=== PATIENT | male | born 1965 | race African-American/Black ===

== ENCOUNTER 2018-07-13 08:34 | Observation (INO) | payer BC, SELFPAY ==
[2018-07-13 09:12] LABS: #Basophils 0.1 thou/uL (0.0-0.2); #Eosinphils 0.1 thou/uL (0.0-0.7); #Lymphocytes 0.8 thou/uL (1.20-3.40); #Monocytes 0.5 thou/uL (0.11-0.59); %Basophils 1.2 % (0.0-1.0); %Eosinophils 2.1 % (0.0-10.0); %Lymphocytes 14.1 % (21.0-51.0); %Monocytes 8.5 % (0.0-10.0); %Neutrophils 74.1 % (42.0-75.0); Hemoglobin 13.8 g/dL (14.0-18.0); Mean Corpuscular HGB CONC 33.2 g/dL (32.0-36.0); Mean Corpuscular Hemoglobin 30.6 pg (27.0-31.0); Mean Corpuscular Volume 92.2 fL (78.0-98.0); Mean Platelet Volume 9.3 fL (7.4-10.4); Platelet Count 203 thou/uL (130-400); RBC Distribution Width 12.7 % (11.5-14.5); Red Blood Cell (RBC) Count 4.53 mill/uL (4.70-6.10); White Blood Cell (WBC) Count 5.4 thou/uL (4.8-10.8)
[2018-07-13 09:34] LABS: ALT (SGPT) 16 U/L (8-55); AST (SGOT) 12 U/L (5-34); Albumin 4.2 g/dL (3.5-5.0); Alkaline Phosphatase 54 U/L (40-150); Anion Gap 12 mmol/L (10-20); BUN (Urea Nitrogen) 21 mg/dL (8.4-25.7); Bilirubin, Total 0.3 mg/dL (0.2-1.2); Calc. Creatinine Clearance 0 mL/min (70-130); Calcium 9.8 mg/dL (7.8-10.44); Carbon Dioxide 25 mmol/L (22-29); Chloride 106 mmol/L (98-107); Estimated GFR-MDRD Greater than 90; Globulin 2.8 g/dL (2.4-3.5); Glucose 185 mg/dL (70-105); Potassium 3.8 mmol/L (3.5-5.1); Sodium 139 mmol/L (136-145)
[2018-07-13 09:39] LABS: CKMB 0.8 ng/mL (0-6.6); Troponin I Less than 0.010 ng/mL (< 0.028)
[2018-07-13] MEDS ORDERED: Nitroglycerin 0.4 MG TAB (25 Tab Bottle) ONE (09:55)
--- NOTE | 2018-07-13 09:56 | RAD ---
PORTABLE CHEST: Comparison: 04-21-12 History: Chest pain FINDINGS: Heart size is within normal limits. Mediastinal structures appear unremarkable. The lungs are clear o f infiltrates. IMPRESSION: No active intrathoracic disease. POS: [facility]
[2018-07-13] MEDS ORDERED: Acetaminophen 500 MG TAB ONE (11:05)
[2018-07-13 12:37] VITALS: BMI 29.5
[2018-07-13 12:47] LABS: Troponin I Less than 0.010 ng/mL (< 0.028)
[2018-07-13 16:07] LABS: Troponin I Less than 0.010 ng/mL (< 0.028)
[2018-07-13] MEDS: metFORMIN 500 MG TAB PO SCH (16:31)
[2018-07-13] MEDS: Lisinopril 10 MG TAB PO SCH (20:46)
[2018-07-14 04:55] LABS: Cardiac Risk 4.5 (Less than 4.5)
[2018-07-14] MEDS ORDERED: Amlodipine 10 MG TAB PO SCH (09:00)
[2018-07-14] MEDS ORDERED: Aspirin 81 mg Enteric Coated Tablet PO SCH (09:00)
[2018-07-14] MEDS ORDERED: Pioglitazone HCl 15 MG TAB PO SCH (09:00)
[2018-07-14] MEDS ORDERED: glipiZIDE 10 MG TAB PO SCH (09:00)
[2018-07-14] MEDS: metFORMIN 500 MG TAB PO SCH (10:19)
[2018-07-14] MEDS: Lisinopril 10 MG TAB PO SCH (12:11)
--- NOTE | 2018-07-14 13:16 | NM ---
MYOCARDIAL PERFUSION SCAN: INDICATIONS: Chest pain. TECHNIQUE: The patient was given 10 millicuries of technetium labeled sestamibi for rest imaging and 33 millicur ies for stress imaging. The patient was traced according to an adenosine protocol. The left ventricle is imaged with SPECT imaging. CT attenuation imaging is obtained. FINDINGS: There is normal activity throughout the left ventricle on stress images. Inferior wall activity is d egraded on the rest images, due to activity under the diaphragm. Wall motion appears normally preserved. The ejection fraction is recorded at 51%. IMPRESSION: No evidence of reversible ischemia. POS: [facility]
[2018-07-14 16:07] VITALS: BP 161/79; TEMP 98.4
== END 2018-07-14 16:30 | disposition home or self-care (01) ==
LOC: ERS 08:34 → 2SW 11:14
PROVIDERS: ADMIT Internal Medicine; ATTEND Internal Medicine
DX: R07.2 Precordial pain (principal); I25.2 Old myocardial infarction; I10 Essential (primary) hypertension; E11.9 Type 2 diabetes mellitus without complications; K21.9 Gastro-esophageal reflux disease without esophagitis; F17.210 Nicotine dependence, cigarettes, uncomplicated; Z79.82 Long term (current) use of aspirin; Z79.84 Long term (current) use of oral hypoglycemic drugs; Z79.899 Other long term (current) drug therapy
CPT/HCPCS: 36415; 71045; 78452; 80053; 80061; 82553; 84484; 85025; 93005; 93017; 96360; 99406; A9500; G0378; J0153

== ENCOUNTER 2018-11-18 07:48 | Outpatient (CLI) | payer BC ==
--- NOTE | 2018-11-18 11:08 | PET ---
PET SCAN: HISTORY: 53-year-old male with enlarged lymph nodes in the left retroperitoneum. TECHNIQUE: PET scanning with CT attenuation correction is performed from the base of the brain through the proxi mal thighs following the intravenous administration of 11.4 mCi F18-FDG in the right antecubital eusebio a. Imaging performed after an uptake interval of 47 minutes. COMPARISON: None. CORRELATION: CT scan of the abdomen and pelvis of 10/25/18 and 11/02/18 from [facility]. FINDINGS: There are multiple hypermetabolic lymph nodes in the mediastinum with a maximum SUV Of 7.3 in the rig ht paratracheal region, right hilum with a SUV of 5.6, and left hilum with a SUV of 5.6. No brian hyp ermetabolism seen in the left axilla, abdomen, or pelvis. The left retroperitoneal/paraaortic lymphad enopathy noted on the CT scan and demonstrates no abnormal FDG localization (SUV 1.4). No hypermetabolic pulmonary nodules, liver, adrenal, or skeletal lesions are seen. There is physiologic activity in the GI and tracts, and the visualized portions of the brain. The CT scan used for attenuation correction demonstrates no evidence of pleural effusions or ascites. IMPRESSION: Hypermetabolic lymph nodes in the mediastinum and both hilar regions. Malignancy (such as lymphoma) v ersus metastatic disease. POS: [facility]
== END 2018-11-18 07:49 | disposition home or self-care (01) ==
LOC: PET 07:48
PROVIDERS: ATTEND Internal Medicine Hematology & Oncology
DX: R59.9 Enlarged lymph nodes, unspecified (principal)
CPT/HCPCS: 78815; A9552

== ENCOUNTER 2018-11-26 07:20 | Day surgery (SDC) | payer BC ==
[2018-11-23 11:44] VITALS: BMI 30.2
[2018-11-26] MEDS ORDERED: Fentanyl 100 MCG/2 ML VIAL ONE (08:53)
[2018-11-26] MEDS ORDERED: Morphine 4 MG/ML VIAL ONE (11:08)
[2018-11-26] MEDS ORDERED: Morphine 2 MG/ML SYRINGE ONE ×2 (11:18→11:38)
[2018-11-26] MEDS ORDERED: Ondansetron PF 4 MG/2 ML Vial ONE (15:58)
[2018-11-26] MEDS ORDERED: Rocuronium Bromide 10 MG/ML (10ML VIAL) ONE (15:58)
[2018-11-26] MEDS ORDERED: PROPOFOL 200 MG/20 ML VIAL ONE (15:58)
[2018-11-26] MEDS ORDERED: Dexamethasone 20 MG/5 ML VIAL ONE (15:58)
[2018-11-26] MEDS ORDERED: Glycopyrrolate 0.2 MG/ML 5 ML SYRINGE ONE (15:58)
[2018-11-26] MEDS ORDERED: Lidocaine 1% PF 5 ML VIAL ONE (15:58)
[2018-11-26] MEDS ORDERED: PHENYLEPHRINE-NS 100 MCG/ML 10 ML SYRINGE ONE (15:58)
[2018-11-26] MEDS ORDERED: Esmolol 100 MG/10 ML VIAL ONE (15:58)
--- NOTE | 2018-11-26 16:00 | OP ---
DATE OF PROCEDURE: 11/26/2018 SERVICE: Pulmonary Medicine. PROCEDURE PERFORMED: Fiberoptic bronchoscopy with: 1. Transbronchial biopsies. 2. Airway inspection. 3. Endoscopic bronchial ultrasound-guided transbronchial needle aspiration of station R3 and 7. PREPROCEDURE DIAGNOSIS: Mediastinal lymphadenopathy. POSTPROCEDURE DIAGNOSIS: Mediastinal lymphadenopathy. MEDICATIONS: For list of medications administered, please refer to Anesthesia documentation. PREANESTHESIA ASSESSMENT: H and P had been performed. The patient's medications and allergies were reviewed. Informed consent was obtained after discussing the rationale, benefits, and risks of the procedure. Alternative options for sample collection were discussed. DESCRIPTION OF PROCEDURE: A time-out was performed. The patient was positively identified with name and date of . The proposed procedure was verified. After induction anesthesia, the curvilinear endoscopic bronchial ultrasound Olympus bronchoscope was introduced through the endotracheal tube and into the tracheobronchial tree. The bronchoscope was withdrawn into the trachea and brian survey was performed. Endoscopic bronchial ultrasound-guided transbronchial needle aspiration of stations R3 and 7 was completed. There was no significant post biopsy bleeding. The EBUS was subsequently removed from the patient. DESCRIPTION OF PROCEDURE: A diagnostic fiberoptic bronchoscope was then introduced through the same endotracheal tube. The bronchoscope was advanced into the trachea where a tracheobronchial tree inspection was carried out and there was clear identification of the right upper lobe, right middle lobe, right lower lobe, left upper lobe, lingula, and left lower lobe. Anatomy was normal to the segmental level. Transbronchial biopsies were obtained from the right middle lobe under fluoroscopic guidance. Hemostasis was verified, and the bronchoscope was subsequently removed from the patient. Postprocedure fluoroscopy did not demonstrate a pneumothorax. FINDINGS: 1. No endobronchial disease was identified. 2. Rapid on-site pathology suggested there were multinucleated giant cells and granulomas present. No malignancy was otherwise identified. SPECIMENS OBTAINED: 1. Fine-needle aspiration of R3 and 7 for cytology. 2. Transbronchial biopsies from the right middle lobe. 3. FNA of station 7 for microbiology studies. COMPLICATIONS: None. ESTIMATED BLOOD LOSS: 2 mL. DISPOSITION: Discharge home once criteria met. Job ID: [id number]
--- NOTE | 2018-11-26 17:03 | EKG ---
Test Reason : PREOP Blood Pressure : / mmHG Vent. Rate : 067 BPM Atrial Rate : 067 BPM P-R Int : 176 ms QRS Dur : 090 ms QT Int : 362 ms P-R-T Axes : 084 -16 034 degrees QTc Int : 382 ms Normal sinus rhythm Normal ECG When compared with ECG of 13-JUL-2018 08:42, No significant change was found Confirmed by DEMETRIUS ONEILL ([id number]) on 11/26/2018 5:03:30 PM Referred By: KIM Confirmed By:DEMETRIUS ONEILL
[2018-11-30 10:22] LABS: Fungus Stain Final report (.)
== END 2018-11-26 13:45 | disposition home or self-care (01) ==
LOC: SDC 07:20
PROVIDERS: ATTEND Internal Medicine
PROC: 07D78ZX Extraction of Thorax Lymphatic, Via Natural or Artificial Opening Endoscopic, Diagnostic (ICD-10-PCS; principal; 2018-11-26)
PROC: 0BBD8ZX Excision of Right Middle Lung Lobe, Via Natural or Artificial Opening Endoscopic, Diagnostic (ICD-10-PCS; principal; 2018-11-26)
DX: R59.0 Localized enlarged lymph nodes (principal); I10 Essential (primary) hypertension; E11.9 Type 2 diabetes mellitus without complications; Z90.49 Acquired absence of other specified parts of digestive tract; Z87.442 Personal history of urinary calculi; Z79.82 Long term (current) use of aspirin; Z79.84 Long term (current) use of oral hypoglycemic drugs; Z79.899 Other long term (current) drug therapy
CPT/HCPCS: 76000; 87102; 87116; 87206; 88172; 88173; 88177; 88305; 88312; 93005; 93010; J2270; J3010

== ENCOUNTER 2019-05-15 21:24 | Observation (INO) | payer BC, SELFPAY ==
[2019-05-15] MEDS ORDERED: Aspirin Chewable 81 MG TAB ONE (21:43)
--- NOTE | 2019-05-15 21:50 | RAD ---
XR Chest 1 View Portable History: Chest pain Comparison: Radiograph 2018 Findings: Some patchy opacities within both lower lobes. No pneumothorax. No effusion. Cardiac silhou ette is similar. Mild fullness of the mai bilaterally. Impression: 1. Mild fullness of the mai bilaterally suggesting adenopathy. 2. Opacities in both lower lobes reflect atelectasis or developing infection
[2019-05-15 21:56] LABS: #Basophils 0.1 thou/uL (0.0-0.2); #Eosinphils 0.1 thou/uL (0.0-0.7); #Lymphocytes 1.3 thou/uL (1.20-3.40); #Monocytes 0.5 thou/uL (0.11-0.59); #Neutrophils 4.7 thou/uL (1.40-6.50); %Basophils 0.8 % (0.0-1.0); %Eosinophils 1.8 % (0.0-10.0); %Lymphocytes 19.5 % (21.0-51.0); %Monocytes 7.6 % (0.0-10.0); %Neutrophils 70.4 % (42.0-75.0); Hemoglobin 13.1 g/dL (14.0-18.0); Mean Corpuscular HGB CONC 32.7 g/dL (32.0-36.0); Mean Corpuscular Hemoglobin 29.9 pg (27.0-31.0); Mean Corpuscular Volume 91.6 fL (78.0-98.0); Mean Platelet Volume 9.1 fL (7.4-10.4); Platelet Count 227 thou/uL (130-400); RBC Distribution Width 13.5 % (11.5-14.5); Red Blood Cell (RBC) Count 4.37 mill/uL (4.70-6.10); White Blood Cell (WBC) Count 6.6 thou/uL (4.8-10.8)
[2019-05-15 22:06] LABS: ALT (SGPT) 17 U/L (8-55); AST (SGOT) 15 U/L (5-34); Albumin 4.4 g/dL (3.5-5.0); Alkaline Phosphatase 70 U/L (40-150); Anion Gap 16 mmol/L (10-20); BUN (Urea Nitrogen) 18 mg/dL (8.4-25.7); Bilirubin, Total 0.2 mg/dL (0.2-1.2); CK (CPK) 173 U/L (30-200); Calc. Creatinine Clearance 0 mL/min (70-130); Calcium 9.9 mg/dL (7.8-10.44); Carbon Dioxide 22 mmol/L (22-29); Chloride 105 mmol/L (98-107); Estimated GFR-MDRD 85; Globulin 3.1 g/dL (2.4-3.5); Glucose 94 mg/dL (70-105); Potassium 3.2 mmol/L (3.5-5.1); Protein, Total 7.5 g/dL (6.0-8.3); Sodium 140 mmol/L (136-145)
[2019-05-15] MEDS ORDERED: Potassium Chloride 20 MEQ TAB ONE (23:06)
[2019-05-16 00:02] VITALS: BMI 29.1
[2019-05-16] MEDS ORDERED: HYDROcodone/Acetaminophen 10/325 mg Tablet PO PRN (02:14)
[2019-05-16] MEDS ORDERED: Acetaminophen 325 MG TAB PO PRN (02:15)
[2019-05-16] MEDS ORDERED: Dextrose 5% in Water 1,000 ML IV PRN (02:15)
[2019-05-16] MEDS ORDERED: HumaLOG 300 UNITS/3 ML VIAL SC PRN ×2 (02:15)
[2019-05-16] MEDS ORDERED: Ondansetron PF 4 MG/2 ML Vial IVP PRN (02:15)
[2019-05-16] MEDS ORDERED: Ondansetron ODT 4 MG TAB PO PRN (02:15)
[2019-05-16] MEDS ORDERED: Dextrose 50% Abboject 50 ML SYRINGE SLOW IVP PRN (02:15)
[2019-05-16 02:33] LABS: Troponin I Less than 0.010 ng/mL (< 0.028)
--- NOTE | 2019-05-16 04:36 | HP ---
PRIMARY CARE PHYSICIAN: Dr. Edy Macias of [facility]. CHIEF COMPLAINT: Chest pain. HISTORY OF PRESENT ILLNESS: Mr. Mcpherson is a pleasant 54-year-old man with past medical history of hypertension, hyperlipidemia, diabetes mellitus, sarcoidosis, gastroesophageal reflux disease, who had presented to [facility] late last night for chest pain that he states had developed at a family gathering when he was cooking fried chicken. He states that he had 2 to 3 pieces of chicken prior to the symptom starting. He also reports undergoing a normal stress test back in July 2018, he also reports he had undergone a cardiac catheterization at [facility], which he states was normal. Looking back at patient's records in November 2018, he had undergone a bronchoscopy with biopsy with Dr. Raman, which revealed a diagnosis of sarcoidosis, the patient was supposed to follow up with Dr. Raman; however, due to him losing his insurance, he states that he was unable to follow up and has yet to follow up with Dr. Raman since. He states that he has had a chronic intermittent cough now for the last several months. He states that this has not changed. However, today when the chest pain started, he also noticed that taking a deep breath cause him to worsen. He had denied any fever, chills, any headache, blurred vision, dizziness, any palpitations, shortness of breath, abdominal pain, nausea, vomiting, change in his stool or swelling in his extremities. His labs indicated a low potassium of 3.2. Therefore, he was given a potassium replacement in the emergency department of 40 mEq by mouth and he was also given 243 of aspirin. Portable chest x-ray revealed mild fullness of the mai bilaterally suggesting adenopathy with opacities in both lower lobes reflect atelectasis or developing infection. His white count was found to be normal at 6.6, and otherwise other lab work unremarkable. Troponin was found to be normal and less than 0.010 with others pending at this time. The patient's blood pressure and other vital signs are also normal. REVIEW OF SYSTEMS: All other systems reviewed and found to be negative unless mentioned in the HPI. PAST MEDICAL HISTORY: Hypertension, hyperlipidemia, gastroesophageal reflux disease, diabetes mellitus, sarcoidosis. PAST SURGICAL HISTORY: Cholecystectomy, lithotripsy and stents for kidney stones. PSYCHIATRIC HISTORY: None. SOCIAL HISTORY: The patient reports drinking socially roughly once a month, he also reported drinking 2 beers prior to arrival. He also reports smoking 1 to 2 cigarettes per day, but denies any illicit drug use. KNOWN ALLERGIES: No known drug allergies. CURRENT HOME MEDICATIONS: 1. Aspirin 81 mg daily. 2. Amlodipine 10 mg oral daily. 3. Glipizide 10 mg oral daily. 4. Hydrocodone/acetaminophen 10/325 mg oral every 8 hours as needed for pain. 5. Lisinopril 10 mg oral twice daily. 6. Metformin 1000 mg p.o. b.i.d. 7. Actos 30 mg p.o. daily. PHYSICAL EXAMINATION: VITAL SIGNS: Blood pressure 140/73, pulse 70, respirations 18, temperature 98.1 degrees, O2 saturation 100% on room air. GENERAL: The patient is awake, alert, and oriented x3. He is currently lying comfortably in bed and in no acute distress. HEENT: Atraumatic, normocephalic. Pupils are round and reactive to light. Extraocular muscles intact. Moist mucous membranes noted. CARDIOVASCULAR: Positive S1 and S2. Regular rate and rhythm. No murmur auscultated. RESPIRATORY: Clear to auscultation bilaterally. No wheezes, rales, or rhonchi. ABDOMEN: Soft, nontender. Bowel sounds present. MUSCULOSKELETAL: Strength 5+ bilaterally upper and lower extremities. Moves all extremities equal. No edema noted. NEUROLOGIC: Cranial nerves 2 through 12 grossly intact. No focal deficits noted. Speech intact and normal. Gait not assessed. SKIN: Warm, dry, and intact. No rashes. No ulceration noted. PSYCHIATRIC: Good mood and affect. DIAGNOSTIC IMAGING: EKG normal sinus rhythm with a rate of [address] or T-wave changes. LABORATORY DATA: WBC 6.6, RBC 4.37, hemoglobin 13.1, platelet 227. Sodium 140, potassium 3.2, anion gap 16, BUN 18, creatinine 1.10, estimated GFR 85, glucose 94, troponin less than 0.010. DIAGNOSTIC IMAGING: Portable chest x-ray revealed mild fullness of the mai bilaterally suggesting adenopathy with opacities in both lower lobes reflect atelectasis or developing infection. ASSESSMENT AND PLAN: 1. Chest pain, the patient reports that this is improving. He is not with any EKG changes and so far troponin is negative x1 with further repeats pending at this time. He had a normal stress test in July 2018 within the last 12 months and he also had a negative heart catheterization in the past at [facility]. We will try to obtain his records from [facility] and trend troponins. 2. Gastroesophageal reflux disease. Start patient on oral Protonix and monitor symptoms closely. 3. History of sarcoidosis. We will inform Dr. Raman of the patient in the hospital and he will most likely have to follow up with Dr. Raman as outpatient. 4. Hypertension. Continue home regimen and monitor blood pressure and other vital signs closely. 5. Hyperlipidemia. 6. Diabetes mellitus. Continue home regimen with frequent Accu-Cheks and we will add an insulin sliding scale as needed. 7. Deep venous thrombosis and gastrointestinal prophylaxis. 8. Code status, full code. DISPOSITION: Pending further workup and clinical findings, this is likely noncardiac in nature. However, we will obtain further records from [facility] prior to any further testing, and we will await further troponin at this time. He will likely be discharged home in the next 1 to 2 days. Job ID: [id number]
[2019-05-16 05:18] LABS: #Eosinphils 0.1 thou/uL (0.0-0.7); #Lymphocytes 1.3 thou/uL (1.20-3.40); #Monocytes 0.5 thou/uL (0.11-0.59); #Neutrophils 3.5 thou/uL (1.40-6.50); %Basophils 0.6 % (0.0-1.0); %Eosinophils 2.7 % (0.0-10.0); %Lymphocytes 23.7 % (21.0-51.0); %Monocytes 8.9 % (0.0-10.0); Hemoglobin 11.9 g/dL (14.0-18.0); Mean Corpuscular HGB CONC 32.3 g/dL (32.0-36.0); Mean Corpuscular Hemoglobin 29.8 pg (27.0-31.0); Mean Corpuscular Volume 92.2 fL (78.0-98.0); Mean Platelet Volume 9.3 fL (7.4-10.4); Platelet Count 199 thou/uL (130-400); RBC Distribution Width 13.6 % (11.5-14.5); White Blood Cell (WBC) Count 5.4 thou/uL (4.8-10.8)
[2019-05-16 05:35] LABS: Anion Gap 13 mmol/L (10-20); BUN (Urea Nitrogen) 18 mg/dL (8.4-25.7); Calc. Creatinine Clearance 145 mL/min (70-130); Calcium 9.5 mg/dL (7.8-10.44); Carbon Dioxide 23 mmol/L (22-29); Chloride 107 mmol/L (98-107); Estimated GFR-MDRD Greater than 90; Glucose 108 mg/dL (70-105); Potassium 3.7 mmol/L (3.5-5.1); Sodium 139 mmol/L (136-145)
[2019-05-16 05:41] LABS: Troponin I Less than 0.010 ng/mL (< 0.028)
[2019-05-16] MEDS: metFORMIN 500 MG TAB PO SCH ×2 (08:07→15:48)
[2019-05-16] MEDS: Lisinopril 10 MG TAB PO SCH ×2 (08:50→21:55)
[2019-05-16] MEDS: Pioglitazone HCl 15 MG TAB PO SCH (08:51)
[2019-05-16] MEDS: glipiZIDE 10 MG TAB PO SCH (08:51)
[2019-05-16] MEDS: Amlodipine 10 MG TAB PO SCH (08:51)
[2019-05-16] MEDS: Aspirin 81 mg Enteric Coated Tablet PO SCH (08:51)
[2019-05-16] MEDS: Enoxaparin Sodium 40 MG/0.4 ML SYRINGE SC SCH (08:52)
--- NOTE | 2019-05-16 13:55 | PDOC.HOSPP ---
- Subjective Encounter Date: 05/16/19 Encounter Time: 13:30 Subjective: Patient cannot remember when he had a cardiac cath and is not sure if it was within the last year. Does not remember the name of the doctor. Denies having a operations examiner. Records from [facility] do not show any cardiac results. Patient reports chest pain yesterday, has resolved, denies any pain today. - Objective Vital Signs & Weight: Vital Signs (12 hours) Temp Pulse Resp BP Pulse Ox 05/16/19 11:06 97.8 F 62 16 119/68 98 05/16/19 08:51 79 05/16/19 07:18 98.1 F 79 16 121/82 99 05/16/19 04:37 98.5 F 68 16 120/69 98 Weight Weight 111.493 kg I&O: 05/15/19 05/16/19 05/17/19 06:59 06:59 06:59 Intake Total 240 Balance 240 Result Diagrams: 05/16/19 04:35 05/16/19 04:35 Additional Labs: Accuchecks 05/16/19 05/16/19 11:12 04:37 POC Glucose 117 H 116 H ROS - Review of Systems Cardiovascular: reports: chest pain Musculoskeletal: reports: shoulder pain - Medication Medications: Active Medications Generic Name Dose Route Start Last Admin Trade Name Rosales PRN Reason Stop Dose Admin Amlodipine Besylate 10 mg 05/16/19 09:00 05/16/19 08:51 Norvasc PO 10 mg DAILY CAN Administration Aspirin 81 mg 05/16/19 09:00 05/16/19 08:51 Ecotrin PO 81 mg DAILY CAN Administration Enoxaparin Sodium 40 mg 05/16/19 09:00 05/16/19 08:52 Lovenox SC Not Given 09 CAN Glipizide 10 mg 05/16/19 09:00 05/16/19 08:51 Glucotrol PO 10 mg DAILY CAN Administration Lisinopril 10 mg 05/16/19 09:00 05/16/19 08:50 Zestril PO 10 mg BID CAN Administration Metformin HCl 1,000 mg 05/16/19 08:00 05/16/19 08:07 Glucophage PO Not Given BID- CAN Pantoprazole Sodium 40 mg 05/16/19 09:00 05/16/19 08:50 Protonix PO 40 mg DAILY CAN Administration Pioglitazone HCl 30 mg 05/16/19 09:00 05/16/19 08:51 Actos PO 30 mg DAILY CAN Administration - Exam Eye: PERRL ENT: moist mucosa Neck: supple Heart: RRR, no murmur Respiratory: CTAB Gastrointestinal: soft, non-tender Extremities: no edema Skin: normal turgor Neurological: CN's grossly intact Musculoskeletal: normal tone Psychiatric: normal affect Hosp A/P (1) Chest pain Code(s): R07.9 - CHEST PAIN, UNSPECIFIED Status: Acute (2) Sarcoidosis of lung Code(s): D86.0 - SARCOIDOSIS OF LUNG Status: Chronic (3) Hyperlipemia Code(s): E78.5 - HYPERLIPIDEMIA, UNSPECIFIED Status: Chronic (4) Diabetes mellitus Code(s): E11.9 - TYPE 2 DIABETES MELLITUS WITHOUT COMPLICATIONS Status: Chronic (5) GERD (gastroesophageal reflux disease) Code(s): K21.9 - GASTRO-ESOPHAGEAL REFLUX DISEASE WITHOUT ESOPHAGITIS Status: Chronic (6) Hypertension Code(s): I10 - ESSENTIAL (PRIMARY) HYPERTENSION Status: Chronic - Plan old records reviewed/req chest pain, records from [facility] obtained and reviewed, no cardiac results included. Had a stress test in Jul 2018, negative, will repeat Lipids, TSH, basmet, cbc Will continue to monitor
[2019-05-17] MEDS: metFORMIN 500 MG TAB PO SCH (06:58)
[2019-05-17] MEDS: Amlodipine 10 MG TAB PO SCH (08:50)
[2019-05-17] MEDS: Aspirin 81 mg Enteric Coated Tablet PO SCH (08:50)
[2019-05-17] MEDS: Lisinopril 10 MG TAB PO SCH (08:51)
[2019-05-17] MEDS: Enoxaparin Sodium 40 MG/0.4 ML SYRINGE SC SCH (08:51)
[2019-05-17] MEDS: glipiZIDE 10 MG TAB PO SCH (08:51)
[2019-05-17] MEDS: Pioglitazone HCl 15 MG TAB PO SCH (08:51)
--- NOTE | 2019-05-17 12:12 | NM ---
EXAM: CARDIAC SPECT HISTORY: Chest pain, dyspnea, hypertension, diabetes, smoker TECHNIQUE: A myocardial perfusion scan was performed using the single isotope 1 day protocol with kerry hnetium 99m sestamibi. [10 mCi] was injected intravenously for the rest exam followed by 32 mCifor the stress study. Pharmacologic stress with Lexiscan was monitored and interpreted by Dr. Bloom FINDINGS: Homogeneous tracer distribution is seen in the myocardial segments on stress and rest image s without fixed or reversible defects. Gated SPECT LVEF: 55% Wall motion exam: Normal IMPRESSION: Normal myocardial perfusion scan
[2019-05-17 12:19] VITALS: BP 127/64; TEMP 98
[2019-05-17] MEDS ORDERED: Regadenoson 0.4 MG/5 ML SYRINGE ONE (13:48)
--- NOTE | 2019-05-21 12:46 | EKG ---
Test Reason : CP Blood Pressure : / mmHG Vent. Rate : 088 BPM Atrial Rate : 088 BPM P-R Int : 162 ms QRS Dur : 094 ms QT Int : 348 ms P-R-T Axes : 060 -25 028 degrees QTc Int : 421 ms Normal sinus rhythm Normal ECG Confirmed by RASHAUN REN, JEROME ([id number]), associate editor SILAS LANGSTON ([id number]) on 05/21/2019 12:46:05 PM Referred By: Confirmed By:JEROME RODNEY MD
== END 2019-05-17 15:09 | disposition home or self-care (01) ==
LOC: ERS 21:24 → 2SW 23:56
PROVIDERS: ADMIT Internal Medicine; ATTEND Internal Medicine
DX: R07.9 Chest pain, unspecified (principal); I10 Essential (primary) hypertension; E11.9 Type 2 diabetes mellitus without complications; I25.10 Atherosclerotic heart disease of native coronary artery without angina pectoris; F17.210 Nicotine dependence, cigarettes, uncomplicated; K21.9 Gastro-esophageal reflux disease without esophagitis; E78.5 Hyperlipidemia, unspecified; D86.0 Sarcoidosis of lung; Z98.890 Other specified postprocedural states; Z79.84 Long term (current) use of oral hypoglycemic drugs; Z79.82 Long term (current) use of aspirin; Z79.899 Other long term (current) drug therapy
CPT/HCPCS: 36415; 36416; 71045; 78452; 80048; 80053; 82550; 84484; 85025; 93005; 93017; 94760; A9500; G0378; J1650; J2785